=== PATIENT | female | born 1975 | race Hispanic/Latino ===

== ENCOUNTER → 2021-08-02 | Outpatient (CLI) | payer OTHER | END | disposition home or self-care (01) | LOC: DTH 15:13 | PROVIDERS: ATTEND Surgery | DX: E66.01 Morbid (severe) obesity due to excess calories (principal); G47.33 Obstructive sleep apnea (adult) (pediatric); I10 Essential (primary) hypertension; K21.9 Gastro-esophageal reflux disease without esophagitis; E78.00 Pure hypercholesterolemia, unspecified | CPT/HCPCS: 97802 ==

== ENCOUNTER 2021-09-18 07:26 | Day surgery (SDC) | payer OTHER ==
[~2021-09-18] VITALS: Ht 154.9 cm; Wt 103.0 kg
[2021-09-18] VITALS (9 sets, daily range): BP systolic 120–138; BP diastolic 80–92
[~2021-09-18 07:26] MED LIST: 0.9%NACL 1000ML 1,000 ML IV ONE
[2021-09-18] MEDS ORDERED: PROPOFOL 10 MG/ML 20ML VIAL IV ONE ×2 (07:39)
[2021-09-18] MEDS ORDERED: PRAV10TA39 PO (08:12)
[2021-09-18] MEDS ORDERED: LOSA1TAB42 PO (08:12)
[2021-09-18] MEDS ORDERED: ALPR0.5T8 PO (08:12)
[2021-09-18] MEDS ORDERED: OMEG1CAP67 PO (08:12)
[2021-09-18] MEDS ORDERED: ERGO500093 PO (08:12)
[2021-09-18] MEDS ORDERED: AMLO-257 PO (08:12)
[2021-09-18] MEDS ORDERED: METF-444 PO (08:12)
[2021-09-18] MEDS ORDERED: ASCO250T70 PO (08:12)
== END 2021-09-18 09:20 | disposition home or self-care (01) ==
LOC: ENDO 07:26 → DAH 07:26 → ENDO 09:20
PROVIDERS: ATTEND Surgery
DX: K21.9 Gastro-esophageal reflux disease without esophagitis (principal); K29.70 Gastritis, unspecified, without bleeding; Z20.822 Contact with and (suspected) exposure to COVID-19
CPT/HCPCS: 43239; 71045; 82948 ×2; 87635; 93005; A4215 ×2; A4221; A4222; A4223; A4606; A4620; A4657; A4663; C9803; J2704 ×2; J7030

== ENCOUNTER 2021-10-02 07:11 | Inpatient (IN) | payer OTHER ==
[2021-09-29 15:59] VITALS: BP 138/79
[2021-09-29 16:05] LABS: BASOPHILS % (AUTO) 0.4 % (0.0-5.0); EOSINOPHILS % (AUTO) 2.1 % (0.0-8.0); HEMATOCRIT 37.4 % (36-48); LYMPHOCYTES % (AUTO) 28.5 % (21.0-51.0); MEAN CORPUSCULAR HEMOGLOBIN 28.5 pg (27.0-33.0); MEAN CORPUSCULAR HGB CONC 31.3 g/dL (32.0-36.0); MONOCYTES % (AUTO) 6.3 % (3.0-13.0); NEUTROPHILS % (AUTO) 62.3 % (40.0-77.0); PLATELET COUNT (AUTO) 314 K/uL (130-400); RED BLOOD CELL COUNT(AUTO) 4.11 MIL/uL (4.00-5.50); RED CELL DISTRIBUTION WIDTH 13.4 % (11.0-15.5); WHITE BLOOD COUNT (AUTO) 11.2 K/uL (4.8-10.8)
[2021-09-29 16:20] LABS: CREATININE 0.7 mg/dL (0.5-1.5); PROTHROMBIN TIME 10.9 SEC (9.6-11.6)
[2021-09-29 16:21] LABS: PARTIAL THROMBOPLASTIN TIME 26.4 SEC (26.3-35.5)
[2021-10-02] VITALS (24 sets, daily range): BP systolic 129–164; BP diastolic 77–98
[~2021-10-02] VITALS: Ht 154.9 cm; Wt 101.2 kg
[~2021-10-02 07:11] MED LIST changes: -0.9%NACL 1000ML 1,000 ML IV ONE; +ASCO250T70 PO; +ERGO500093 PO; +LOSA1TAB42 PO; +METF-444 PO; +OMEG1CAP67 PO; +PRAV10TA39 PO
[2021-10-02] MEDS ORDERED: BUPIVACAINE/PF 0.5% 30ML VIAL ONE (07:38)
[2021-10-02] MEDS ORDERED: DEXMEDETOMIDINE HCL 200 MCG/2 ML VIAL IV ONE (07:42)
[2021-10-02] MEDS ORDERED: 0.9%NACL 1000ML 1,000 ML IV ONE (07:45)
[2021-10-02] MEDS ORDERED: MIDAZOLAM HCL 1 MG/ML 2ML VIAL ONE (07:53)
[2021-10-02] MEDS ORDERED: ROCURONIUM 10MG/1ML SYR 10 MG/ML ML ONE (07:53)
[2021-10-02] MEDS ORDERED: PROPOFOL 10 MG/ML 20ML VIAL IV ONE (07:53)
[2021-10-02] MEDS ORDERED: LIDOCAINE PF 100MG/5ML (2%) SYRINGE 5ML ONE (07:53)
[2021-10-02] MEDS ORDERED: FENTANYL CITRATE PF 50 MCG/1 ML 2ML VIAL ONE (07:53)
[2021-10-02] MEDS: CEFOXITIN SODIUM 2 GM VIAL ONE ×2 (07:59→08:34)
[2021-10-02] MEDS ORDERED: ONDANSETRON 4MG INJ ONE (09:19)
[2021-10-02] MEDS ORDERED: GLYCOPYRROLATE 1 MG/5 ML SYRINGE ONE (09:19)
[2021-10-02] MEDS ORDERED: NEOSTIGMINE 5MG/5ML SYR IV ONE (09:20)
[2021-10-02] MEDS ORDERED: KETOROLAC 30MG VIAL (30MG/ML) ONE (09:35)
[2021-10-02] MEDS ORDERED: MEPERIDINE-PF 25 MG/ML SYG ONE ×2 (09:54→10:21)
[2021-10-02] MEDS: ONDANSETRON 4MG INJ IVP PRN ×2 (09:57→16:58)
[2021-10-02] MEDS ORDERED: CEFAZOLIN SODIUM 1 GM VIAL IVP SCH (10:00)
[2021-10-02] MEDS ORDERED: LACTATED RINGERS 1000ML 1,000 ML IV SCH (10:00)
[2021-10-02] MEDS: LACTATED RINGERS 1000ML 1,000 ML IV SCH ×2 (10:00→16:45)
[2021-10-02] MEDS: MORPHINE 5 MG/ML VIAL (5MG OR GREATER DOSE) IVP PRN ×2 (14:05→19:04)
[2021-10-02] MEDS: CEFAZOLIN SODIUM 1 GM VIAL IVP SCH (16:45)
[2021-10-02] MEDS ORDERED: METOCLOPRAMIDE 10 MG/2 ML VIAL ONE (18:44)
[2021-10-02] MEDS ORDERED: FAMOTIDINE 20MG VIAL IV ONE ×2 (18:44→19:00)
[2021-10-02 18:52] LABS: HEMATOCRIT 39.5 % (36-48); MEAN CORPUSCULAR HEMOGLOBIN 28.4 pg (27.0-33.0); MEAN CORPUSCULAR HGB CONC 31.9 g/dL (32.0-36.0); RED BLOOD CELL COUNT(AUTO) 4.44 MIL/uL (4.00-5.50); RED CELL DISTRIBUTION WIDTH 13.2 % (11.0-15.5)
[2021-10-02 19:03] LABS: CREATININE 0.7 mg/dL (0.5-1.5); POTASSIUM 4.6 mmol/L (3.5-5.1)
[2021-10-02 19:06] LABS: INR 1.04 (0.85-1.15); PROTHROMBIN TIME 11.3 SEC (9.6-11.6)
[2021-10-02 19:07] LABS: PARTIAL THROMBOPLASTIN TIME 24.8 SEC (26.3-35.5)
[2021-10-02] MEDS: ENOXAPARIN SODIUM 30 MG/0.3 ML SQ SCH (21:00)
[2021-10-02] MEDS: FAMOTIDINE 20MG VIAL IV SCH (21:00)
[2021-10-03] MEDS ORDERED: METOCLOPRAMIDE 10 MG/2 ML VIAL IVP ONE
[2021-10-03] MEDS: MORPHINE 5 MG/ML VIAL (5MG OR GREATER DOSE) IVP PRN ×3 (00:30→19:51)
[2021-10-03] MEDS: CEFAZOLIN SODIUM 1 GM VIAL IVP SCH (00:31)
[2021-10-03] MEDS: LACTATED RINGERS 1000ML 1,000 ML IV SCH ×3 (02:00→16:24)
[2021-10-03 04:25] VITALS: BP 134/83
[2021-10-03 05:22] LABS: BASOPHILS % (AUTO) 0.2 % (0.0-5.0); EOSINOPHILS % (AUTO) 0.1 % (0.0-8.0); HEMATOCRIT 36.4 % (36-48); LYMPHOCYTES % (AUTO) 16.8 % (21.0-51.0); MEAN CORPUSCULAR HGB CONC 31.3 g/dL (32.0-36.0); MEAN CORPUSCULAR VOLUME 89.4 fL (79-99); MONOCYTES % (AUTO) 7.8 % (3.0-13.0); NEUTROPHILS % (AUTO) 74.4 % (40.0-77.0); PLATELET COUNT (AUTO) 329 K/uL (130-400); RED BLOOD CELL COUNT(AUTO) 4.07 MIL/uL (4.00-5.50); RED CELL DISTRIBUTION WIDTH 13.5 % (11.0-15.5)
[2021-10-03 05:36] LABS: CREATININE 0.8 mg/dL (0.5-1.5); POTASSIUM 3.7 mmol/L (3.5-5.1)
[2021-10-03 08:00] VITALS: BP 131/82
[2021-10-03] MEDS: ENOXAPARIN SODIUM 30 MG/0.3 ML SQ SCH ×3 (09:00→19:55)
[2021-10-03] MEDS: FAMOTIDINE 20MG VIAL IV SCH ×2 (09:36→19:49)
[2021-10-03] MEDS: ONDANSETRON 4MG INJ IVP PRN (09:56)
[2021-10-03 11:00] VITALS: BP 138/87
[2021-10-03 16:02] VITALS: BP 135/88
[2021-10-03 20:00] VITALS: BP 147/85
[2021-10-04 00:15] VITALS: BP 121/61
[2021-10-04] MEDS: LACTATED RINGERS 1000ML 1,000 ML IV SCH (02:00)
[2021-10-04 05:20] VITALS: BP 134/81
[2021-10-04 08:00] VITALS: BP 128/83
[2021-10-04] MEDS ORDERED: ACETAMINOPHEN 325 MG TAB PO SCH (08:30)
== END 2021-10-04 10:00 | disposition home or self-care (01) | DRG 621 ==
LOC: DAHIP 07:11 → 3DH 11:00
PROVIDERS: ADMIT Surgery; ATTEND Surgery
PROC: 0DB64Z3 Excision of Stomach, Percutaneous Endoscopic Approach, Vertical (ICD-10-PCS; principal; 2021-10-02 08:07)
DX: E66.01 Morbid (severe) obesity due to excess calories (principal); Z20.822 Contact with and (suspected) exposure to COVID-19; I10 Essential (primary) hypertension; E78.00 Pure hypercholesterolemia, unspecified; F32.A Depression, unspecified; F41.9 Anxiety disorder, unspecified; K21.9 Gastro-esophageal reflux disease without esophagitis; Z68.41 Body mass index [BMI] 40.0-44.9, adult; Z83.3 Family history of diabetes mellitus; Z82.49 Family history of ischemic heart disease and other diseases of the circulatory system
CPT/HCPCS: 36415; 80048; 82948; 85025; 85027; 85610; 85730; 86850; 86900; 86901; 87635; G0378; J0690; J0694; J1650; J1885; J2001; J2175; J2250; J2270; J2405; J2704; J2710; J2765; J3010; J3490; J7030; J7120